=== PATIENT | female | born 1980 ===

== ENCOUNTER 2018-05-10 08:02 | Outpatient (CLI) | payer OTHER ==
[~2018-05-10] VITALS: Ht 152.4 cm; Wt 68.0 kg
== END 2018-05-10 08:25 | disposition home or self-care (01) ==
LOC: OFIC 805 08:02
DX: H61.23 Impacted cerumen, bilateral (principal); H60.8X3 Other otitis externa, bilateral; J31.0 Chronic rhinitis; J34.2 Deviated nasal septum; J34.3 Hypertrophy of nasal turbinates

== ENCOUNTER 2018-05-31 07:22 | Outpatient (CLI) | payer OTHER ==
[~2018-05-31] VITALS: Ht 152.4 cm; Wt 68.0 kg
== END 2018-05-31 07:50 | disposition home or self-care (01) ==
LOC: OFIC 805 07:22
DX: H60.8X3 Other otitis externa, bilateral (principal); H61.23 Impacted cerumen, bilateral; J31.0 Chronic rhinitis